=== PATIENT | female | born 1990 | race Caucasian/White ===

== ENCOUNTER 2023-07-28 11:46 | Outpatient (OUT) | payer OTHER, SELFPAY ==
[2023-07-28 12:36] LABS: Free T3 2.48 pg/mL (2.18-3.98); Thyroid Stimulating Hormone 0.144 uIU/mL (0.358-3.740)
== END 2023-07-28 11:47 | disposition home or self-care (01) ==
LOC: LAB 11:49
PROVIDERS: PCP Nurse Practitioner Family; Visit Provider Nurse Practitioner Family
DX: E03.9 Hypothyroidism, unspecified (principal)
CPT/HCPCS: 36415; 84436; 84443; 84481

== ENCOUNTER 2024-06-08 15:24 | Outpatient (OUT) | payer OTHER, SELFPAY ==
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
[2024-06-08 17:01] LABS: Free T3 1.13 pg/mL (2.18-3.98); Thyroid Stimulating Hormone 229.212 uIU/mL (0.358-3.740)
== END 2024-06-08 15:25 | disposition home or self-care (01) ==
LOC: LAB 15:25
PROVIDERS: PCP Nurse Practitioner Family; Visit Provider Nurse Practitioner Family
DX: E03.9 Hypothyroidism, unspecified (principal)
CPT/HCPCS: 36415; 84436; 84443; 84481

== ENCOUNTER 2024-06-10 14:30 | Outpatient (OUT) | payer OTHER, SELFPAY ==
--- NOTE | 2024-06-10 14:42 | XR_ITS ---
[facility] [place] [id number] Patient Name: VERA DIAS MRN: [id number] date: 1990 Sex: F Assigned Patient Location: [facility] Current Patient Location: Accession/Order Number: [id number] Exam Date: 06/10/2024 14:35 Report Date: 06/11/2024 07:37 At the request of: FABIOLA ABRAMS Procedure: XR knee LT 3V PROCEDURE: XR knee LT 3V COMPARISON: None. HISTORY: Left knee Pain FINDINGS: BONES:No fracture, acute abnormality, or significant arthropathy. SOFT TISSUES:Negative. No visible soft tissue swelling. EFFUSION:Moderate joint effusion OTHER: Negative. XR/XR knee LT 3V IMPRESSION: Moderate joint effusion Electronically authenticated by: ERMA MIN Date: 06/11/2024 07:37
== END 2024-06-10 14:31 | disposition home or self-care (01) ==
LOC: RAD 14:30
PROVIDERS: PCP Nurse Practitioner Family; Visit Provider Nurse Practitioner Family
DX: M25.562 Pain in left knee (principal); M25.462 Effusion, left knee
CPT/HCPCS: 73562

== ENCOUNTER 2024-06-28 12:43 | Outpatient (OUT) | payer OTHER, SELFPAY ==
--- NOTE | 2024-06-28 12:46 | MR_ITS ---
The [address] [address] Patient Name: VERA DAIS MRN: [id number] date: 1990 Sex: F Assigned Patient Location: MRI Current Patient Location: MRI Accession/Order Number: [id number] Exam Date: 06/28/2024 12:55 Report Date: 06/28/2024 15:24 At the request of: OTILIA RODRÍGUEZ Procedure: MR knee LT wo con EXAMINATION: MR knee LT wo con HISTORY: Effusion Left Knee, Acute Pain Of Left Knee COMPARISON: No relevant comparison available. TECHNIQUE: A complete multi-planar MRI was performed. FINDINGS: MEDIAL COMPARTMENT MEDIAL MENISCUS: Increased signal posterior aspect of the medial meniscus with possible tear extending to the inferior articular surface, sagittal image 21 CARTILAGE: No visible defect. BONES: No marrow pathology, fracture, or significant arthropathy. MCL AND MEDIAL CAPSULE: Normal medial collateral ligament and medial capsule. LATERAL COMPARTMENT LATERAL MENISCUS: No visible tear or significant degeneration. CARTILAGE: No visible defect. BONES: Signal abnormality consistent with bone edema measuring 3.6 x 2.9 cm on coronal image 14 within the lateral tibia and also within the fibular head LCL/POSTEROLAT COMPLEX: Normal lateral collateral ligament, fascicles, lateral capsule and ligaments. ANTERIOR COMPARTMENT PATELLA: No marrow pathology, fracture, or significant arthropathy. CARTILAGE: No visible defect. TENDONS: Normal. EFFUSION: Small joint effusion. ACL: Complete tear of the mid to upper third of the ligament. PCL: Normal appearing ligament. MENISCOFEMORAL: Normal meniscofemoral ligaments. OTHER: Negative. MR/MR knee LT wo con IMPRESSION: Complete tear of the ACL Bone contusions of the lateral tibia and fibular head. Electronically authenticated by: ERMA MIN Date: 06/28/2024 15:24
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
== END 2024-06-28 12:44 | disposition home or self-care (01) ==
PROVIDERS: PCP Nurse Practitioner Family; Visit Provider Physician Assistant
DX: M25.462 Effusion, left knee (principal); M25.562 Pain in left knee; S83.512A Sprain of anterior cruciate ligament of left knee, initial encounter
CPT/HCPCS: 73721

== ENCOUNTER 2024-08-12 09:21 | Outpatient (OUT) | payer OTHER, SELFPAY ==
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
[2024-08-12 11:21] LABS: Free T3 2.26 pg/mL (2.18-3.98); Thyroid Stimulating Hormone 10.687 uIU/mL (0.358-3.740)
== END 2024-08-12 09:22 | disposition home or self-care (01) ==
LOC: LAB 09:24
PROVIDERS: PCP Nurse Practitioner Family; Visit Provider Nurse Practitioner Family
DX: E03.9 Hypothyroidism, unspecified (principal)
CPT/HCPCS: 36415; 84436; 84443; 84481

== ENCOUNTER 2024-10-06 09:25 | Outpatient (OUT) | payer OTHER, SELFPAY ==
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
--- OUTSIDE RECORDS SUMMARY | 2024-07-28 04:22 | XMS_ITS ---
Author Organization [facility] Address [address] [place] [address] Care Team Providers Care Wood Tank Erector Name Role Phone Neena Oh Primary Care Provider REASON FOR VISIT repeat labs due Encounters Encounter Location Date Provider Diagnosis [address] [address] 07/28/2024 Neena Oh Plan Of Treatment No Information Progress Notes * Alessandra DIASOB:1990 (34 yo F)Acc No.[id number]:07/28/2024 Patient: Mark SANDOVALhael :1990 A ge:34 Y S ex:Female Address:[place] [address] * true * Date: Generated for Printi ng/Faxing/eTransmitting on: 0 10/06/2024 09:39 AM EDT
--- OUTSIDE RECORDS SUMMARY | 2024-08-13 10:52 | XMS_ITS ---
Author Organization [facility] [place] Address [address] [place] [address] Care Team Providers Care Production Material Coordinator Name Role Phone Neena Oh Primary Care Provider [phone] REASON FOR VISIT lab results- Medications Medication SIG (Take, Route, Frequency, Duration) Notes Start Date End Date Status Levothyroxine Sodium 137 MCG take 1 tabl et Orally Once a day for 30 days Active Encounters Encounter Location Date Provider Diagnosis [address] [address] 08/13/2024 Neena Oh Hypothyroid E03.9 Assessments Encounter Date Diagnosis (ICD Code) Assessment Notes Treatment Notes Treatment Clinical Notes Section Notes 08/13/2024 Hypothyroid (ICD-10 - E03.9) Plan Of Treatment Medication Medication Name Sig Start Date Stop Date Notes Levothyroxine Sodium 137 MCG take 1 tabl et Orally Once a day for 30 days Pending Test Test Name Order Date THYROID PANEL (T4/TSH/FREE T3) Progress Notes * Alessandra DIASOB:1990 (34 yo F)Acc No.[id number]:08/13/2024 Patient: Mark SANDOVALhael :1990 A ge:34 Y S ex:Female Address:[place] [address] * Refills Refill Levothyroxine Sodium Capsule, 137 MCG, Orally, 30, take 1 tablet, Once a day, 30 days, Refills=1 Subjective: * Chief Complaints: * L ab results- * Medical History: * Surgical History: * Hospitalization/Major Diagno stic Procedure: * Medications: Objective: * Vitals: * Physical Examination: Assessment: * Assessment: 1. H ypothyroid - E03.9 (Primary) Plan: * Treatment: 2. O thers Refill Levothyroxine Sodium Capsule, 137 MCG, take 1 tablet, Orally, Once a day, 30 days, 30, Refills 1. * Procedure Codes: * true * Date: Generated for Randal galdamez/Kanu/eTbeckysmitting on: 0 10/06/2024 09:33 AM EDT
--- OUTSIDE RECORDS SUMMARY | 2024-08-16 13:40 | XMS_ITS ---
Author Organization [facility] Address [address] [place] [address] Care Team Providers Care Test Director Name Role Phone Emir Oneil Unavailable [phone] Neena Oh Unavailable Unavailable REASON FOR VISIT Call back Encounters Encounter Location Date Provider Diagnosis [facility] [address] [place] [address] 08/16/2024 Emir Oneil Plan Of Treatment Next Appt Details Provider Name:Emir Liu and, 10/18/2024 07:50:00 AM, [address] [place] [address], [place], [address], Progress Notes * KAM DIASOB:1990 (34 yo F)Acc No.[id number]:08/16/2024 Patient: LIAN SANDOVALHAEL :1990 A ge:34 Y S ex:Female Address:[facility] [place], [address] * true * Date: Generated for Printi ng/Faxing/eTransmitting on: 0 10/06/2024 09:37 AM EDT
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
--- OUTSIDE RECORDS SUMMARY | 2024-10-01 05:56 | XMS_ITS ---
Author Organization [facility] [place] Address [address] [place] [address] Care Team Providers Care Ski Molder Name Role Phone Neena Oh Primary Care Provider [phone] REASON FOR VISIT repeat thyroid labs Encounters Encounter Location Date Provider Diagnosis [address] [address] 10/01/2024 Neena Oh Plan Of Treatment No Information Progress Notes * Alessandra DIASOB:1990 (34 yo F)Acc No.[id number]:10/01/2024 Patient: Mark SANDOVALhael :1990 A ge:34 Y S ex:Female Address:[place] [address] * true * Date: Generated for Printi ng/Faxing/eTransmitting on: 0 10/06/2024 09:40 AM EDT
--- OUTSIDE RECORDS SUMMARY | 2024-10-06 09:32 | XMS_ITS | CCD ---
Author Organization [facility] Care Team Providers Care Industrial Psychology Professor Name Role Phone Katelin Matos PA-C Attending Unavaila NEENA Cabrales Admitting Unavailable NEENA ABRAMS Attending Unavailable JOSE ALBERTO, NEENA Consulting Unavailable JOSE ALBERTO, NEENA Primary Care Unavailable KARASIK ., DR PHELAN Attending Unavailabl e KARASIK ., DR PHELAN Consulting Unavailabl e KARASIK ., DR PHELAN Admitting Unavailabl e JOSE ALBERTO, NEENA Primary Care Unavailable JOSE ALBERTO, NEENA Admitting Unavailable JOSE ALBERTO, NEENA Attending Unavailable JOSE ALBERTO, NEENA Consulting Unavailable JOSE ALBERTO, NEENA Primary Care Unavailable Unavailable Primary Care Provider UnavailMICHEAL Campbell Attending Unavailable JOSE ALBERTO, NEENA S Primary Care Unavailable DEYANIRA AGGARWAL Attending Unavailable DOMINICK SANCHEZ Referring Unavailable JOSE ALBERTO, NEENA S Primary Care Unavailable DOMINICK SANCHEZ Referring Unavailable JOSE ALBERTO, NEENA S Primary Care Unavailable DEYANIRA AGGARWAL Attending Unavailable DEYANIRA AGGARWAL Referring Unavailable JOSE ALBERTO, NEENA S Primary Care Unavailable DEYANIRA AGGARWAL Attending Unavailable DEYANIRA AGGARWAL Referring Unavailable JOSE ALBERTO, NENEA S Primary Care Unavailable Medications Current Medications Medication Drug Class(es) Dates Sig (Normalized) Sig (Original) etonogestrel 68 mg drug implant (1 source) Progestin Start: 09-21-2024 End: 09-21-2027 etonogestrel-eluting 68 mg contraceptive implant 1 each Problems Active Problems Problem Classification Problem Date Documented Da te Episodic/Chronic Contraceptive and procreative management (1 source) Patient encounter status; Translations: [Encounter for surveillance of implantable subdermal contraceptive] 09-21-2024 Episodic Joint disorders and dislocations; trauma-related (1 source) Other tear of medial meniscus, current injury, left knee, initial encounter; Translations: [Other tear of medial meniscus, current injury, left knee, initial encounter] Onset: 09-16-2024 Episodic Other injuries and conditions due to external causes (1 source) Other specified injuries of unspecified lower leg, initial encounter; Translations: [Other specified injuries of unspecified lower leg, initial encounter] Onset: 09-16-2024 Episodic Sprains and strains (2 sources) Sprain of anterior cruciate ligament of left knee, initial encounter; Translations: [Sprain [...] SCREENING HUMAN PAPILLOMAVIRUS] Onset: 11-13-2021 Episodic Other connective tissue disease (1 source) Myalgia, other site; Translations: [Myalgia, other site] Onset: 09-30-2023 Episodic Other connective tissue disease (1 source) Pain in lower limb Onset: 09-30-2023 Episodic Other female genital disorders (1 source) Other specified noninflammatory disorders of vagina; Translations: [OTH SPEC NONINFLAMMATORY D/O VAGINA] Onset: 11-13-2021 Episodic Other non-traumatic joint disorders (1 source) Knee pain Onset: 09-30-2023 Episodic Other screening for suspected conditions (not mental disorders or infectious disease) (4 sources) Encounter for screening for malignant neoplasm of cervix; Translations: [ENC SCREENING MALIG NEOPLASM CERV] Onset: 11-09-2021 Episodic Results Test Name Value Interpretation Reference Range Facility HCG ( test) Ql (U)o n 09-21-2024 Interpretation and review of laboratory results Normal [facility] Preg Test, Ur Negative Negative [facility] Insertion/Removal of Contrac eptive Capsuleon 09-21-2024 Melissa Castillo LPN 09/21/2024 2:29 PM Insertion/Removal of Contraceptive Capsule Date/Time: 09/21/2024 2:14 PM Performed by: Micheal Morrison DO Authorized by: Micheal Morrison DO Consent: Consent obtained: Written Consent given by: Patient Patient questions answered: yes Patient agrees, verbalizes understanding, and wants to proceed: yes Educational handouts given: no Instructions and paperwork completed: yes Indication: Indication: Insertion of non-biodegradable drug delivery implant Pre-procedure: Local anesthetic: Lidocaine without epinephrine The site was cleaned and prepped in a sterile fashion: yes Procedure: Procedure: Insertion Small stab incision was made in arm: no Left/right: Left Preloaded contraceptive capsule trocar was placed subdermally: yes Contraceptive capsule was inserted and trocar removed: yes Visualization of notch in stylet and palpation of device: yes Palpation confirms placement by provider and patient: yes Site was closed with steri-strips and pressure bandage applied: no Comments: Nexplanon Removal/Insertion: Patient presents today for removal/reinsertion of Nexplanon. Written consent for procedure was obtained and patient was placed in supine position with left arm flexed at elbow. Skin was cleansed with alcohol/Betadine and 3cc of Lidocaine was injected underneath palpated Nexplanon at distal end. After allowing for sufficient time for numbing agent to take effect, the skin overlying the end of Nexplanon was incised with an 11inch blade scalpel. A 7.5in hemostat was inserted in the incision site to grab device and Nexplanon was released from tissue. Nexplanon implant was removed in its entirety and visualized by myself and patient. The Nexplanon device was removed from its sterile packaging and found to be in good working order. Nexplanon implant was visualized in the sheath. The skin was held taut while the Nexplanon needle device was gently inserted underneath. After Nexplanon was deployed, the insertion device was discarded in the sharps container. The Nexplanon was palpated by both provider and patient. The insertion site was covered with sterile gauze. Good hemostasis was noted. Post-procedure instructions were given. Patient was advised to call office with any questions or concerns. Follow Up: Patient is to return to the office as needed for any routine appointments or concerns regarding procedure. Critical access hospitalHeydi Castillo LPN 09/21/2024 2:29 PM Insertion/Removal of Contraceptive Capsule Date/Time: 09/21/2024 2:14 PM Performed by: Micheal Morrison DO Authorized by: Micheal Morrison DO Consent: Consent obtained: Written Consent given by: Patient Patient questions answered: yes Patient agrees, verbalizes understanding, and wants to proceed: yes Educational handouts given: yes Instructions and paperwork completed: yes Indication: Indication: Presence of non-biodegradable drug delivery implant Pre-procedure: Local anesthetic: Lidocaine without epinephrine The site was cleaned and prepped in a sterile fashion: yes Procedure: Procedure: Removal Small stab incision was made in arm: yes Left/right: Left Preloaded contraceptive capsule trocar was placed subdermally: no Visualization of implant was obtained: yes Contraceptive capsule was inserted and trocar removed: no Visualization of notch in stylet and palpation of device: no Palpation confirms placement by provider and patient: no Site was closed with steri-strips and pressure bandage applied: no [facility] Insertion/Removal of Contrac eptive CapsuleOrdered By: Melissa Castillo on 09-21-2024 [facility] XR FEMUR RT 2+ VIEWSon 09-29 XR FEMUR RT 2+ VIEWS XR FEMUR RT 2+ VIEWS XR FEMUR RT 2+ VIEWS HISTORY: Injury, thigh pain. COMPARISON: None. IMPRESSION: 1. No acute fracture or dislocation. Finalized by Lyle Powell MD on 09/30/2023 2:26 PM Normal [facility] XR HAND LT MIN 3 VWSon [...] on 09/30/2023 2:23 PM Normal [facility] XR HIP RT 2-3 VIEWS W [...] on 09/30/2023 2:23 PM Normal [facility] XR KNEE LT 3 VWSon 4 [...] on 09/30/2023 2:22 PM Normal [facility] FREE THYROXINE INDEX T7on FTI 3.92 Normal 1.30-4.50 [facility] Comment on above: Performed By: #### T 7, TSH #### [facility] [address] [address] [address] Leonel Gandhi T3U 36.0 % Normal 30.0-39.0 [facility] Comment on above: Performed By: #### T 7, TSH #### [facility] [address] [address] [address] Leonel Gandhi T4 [Mass/Vol] 10.90 ug/dL Normal 4.80-13.[address] [facility] Comment on above: Performed By: #### T 7, TSH #### [facility] [address] [address] [address] Leonel Gandhi TSHon 07-12-2022 TSH 0.033 uIU/mL Critically low 0.358-3.740 [facility] Comment on above: Performed By: #### T 7, TSH #### [facility] [address] [address] [address] Leonel Gandhi FREE T3on 05-21-2022 FREE T3 1.58 pg/mlL Critically low 2.18-3.98 [facility] Comment on above: Performed By: #### T 4, FT3, TSH #### [facility] [address] [address] [address] Leonel Gandhi T4on 05-21-2022 T4 [Mass/Vol] 4.60 ug/dL Critically low 4.80-13.90 [facility] Comment on above: Performed By: #### T 4, FT3, TSH #### [facility] [id number] Leonel Gandhi TSHon 05-21-2022 TSH 11.706 uIU/mL Critically high 0.358-3.740 [facility] Comment on above: Performed By: #### T 4, FT3, TSH #### [facility] [address] [place] [address] Dr. Leonel Gandhi PAP ACOG PANEL 2: 30 to 65on 11-14-2021 . . Normal [facility] Comment on above: Result Comment: Perf ormed at: WB Performed By: #### [id number] #### [facility] [address] [place] [address] Dr. Leonel Gandhi Age Gdln ACOG Testing 30-65 Normal [facility] Comment on above: Performed By: #### [id number] #### [facility] [address] [place] [address] Dr. Leonel Gandhi DIAGNOSIS: Comment Normal [facility] Comment on above: Result Comment: NEGA TIVE FOR INTRAEPITHELIAL LESION OR MALIGNANCY. TRICHOMONAS VAGINALIS IS PRESENT. Performed at: WB Performed By: #### [id number] #### [facility] [address] [place] [address] Dr. Leonel Gandhi HPV Aptima Negative Normal Negative [facility] Comment on above: Result Comment: This nucleic acid amplification test detects fourteen high-risk HPV types (16,18,31,33,35,39,45,51,52,56,58,59,66,68) without differentiation. Performed at: =G Performed By: #### [id number] #### [facility] [address] [place] [address] Dr. Leonel Gandhi Methodology: Comment Normal [facility] Comment on above: Result Comment: This liquid based ThinPrep(R) pap test was screened with the use of an image guided system. Performed at: WB Performed By: #### [id number] #### [facility] [address] [place] [address] Dr. Leonel Gandhi Note: Comment Normal [facility] Comment on above: Result Comment: The Pap smear is a screening test designed to aid in the detection of premalignant and malignant conditions of the uterine cervix. It is not a diagnostic procedure and should not be used as the sole means of detecting cervical cancer. Both false-positive and false-negative reports do occur. . Performed at: WB Performed By: #### [id number] #### [facility] [address] [place] [address] Dr. Leonel Gandhi Performed by: Comment Normal [facility] Comment on above: Result Comment: Landon Chua, Implementation Director (ASCP) Performed at: WB Performed By: #### [id number] #### [facility] [address] [place] [address] Dr. Leonel Gandhi Specimen adequacy: Comment Normal [facility] Comment on above: Result Comment: Sati sfactory for evaluation. Endocervical and/or squamous metaplastic cells (endocervical component) are present. Performed at: WB Performed By: #### [id number] #### [facility] [address] [place] [address] Dr. Leonel Gandhi CHLAMYDIA/GONOCOCCUS LIZZ (SW AB/URINE/PAPon 11-13-2021 Chlamydia trachomatis, LIZZ Negative Normal Negative [facility] Comment on above: Performed By: #### C T/NGNA #### [facility] [address] [place] [address] Dr. Leonel Gandhi Neisseria gonorrhoeae, LIZZ Negative Normal Negative [facility] Comment on above: Performed By: #### C T/NGNA #### [facility] [address] [place] [address] Dr. Leonel Gandhi VAGINITIS/VAGINOSIS DNA PROB Leon 11-11-2021 Candy species Negative Normal Negative [facility] Comment on above: Performed By: #### V AGINT #### [facility] [address] [address] [address] Leonel Gandhi Gardnerella vaginalis Negative Normal Negative [facility] Comment on above: Performed By: #### V AGINT #### [facility] [address] [address] [address] Leonel Gandhi Trichomonas vaginalis Positive Abnormal Negative [facility] Comment on above: Performed By: #### V AGINT #### [facility] [address] [address] [address] Leonel Gandhi Valproic Acid (in house)on 0 06-18-2021 Valproic Acid (in house) 92.3 ug/mL Normal 50.0-100.0 [facility] Comment on above: Result Comment: Last dose: - PERFORMED BY: [place] [address] PATHOLOGIST TRAVEL REGISTERED NURSE ONCOLOGY FADI PRUITT M.D. Performed By: #### V ALP #### [facility] [address] [place] [address] Free T4 (Free Thyroxine)on 0 06-15-2021 Free T4 [Mass/Vol] 0.78 ng/dL Normal 0.61-1.12 [facility] Comment on above: Performed By: #### V [id number], T4F, LIPID, TSH3 wRFLX #### [facility] [address] [place] [address] Lipid Panelon 06-15-2021 Cholesterol [Mass/Vol] 156 mg/dL Normal 140-200 [facility] Comment on above: Result Comment: Chol less than 200 mg/dl low risk Chol 201-239 mg/dl borderline risk Chol 240 mg/dl and greater high risk Performed By: #### V [id number], T4F, LIPID, TSH3 wRFLX #### [facility] [address] [place] [address] Cholesterol in HDL [Mass/Vol] 51 mg/dL Normal 35-85 [facility] Comment on above: Result Comment: HDL CHOL ATP-III CLASSIFICATION Cardiovascular Risk HDL > or equal to 60 mg/dL LOW HDL < 40 mg/dL HIGH Performed By: #### V [id number], T4F, LIPID, TSH3 wRFLX #### [facility] [address] Cholesterol.total/C holesterol in HDL [Mass ratio] 3.1 {ratio} Normal <5.0 [facility] Comment on above: Performed By: #### V [id number], T4F, LIPID, TSH3 wRFLX #### [facility] [address] LDL Cholesterol,Calcula jazmin 92 mg/dL Normal 0-100 [facility] Comment on above: Result Comment: LDL ATP III CLASSIFICATION LDL less than 100 mg/dL Optimal LDL 100-129 mg/dL Near or above optimal LDL 130-159 mg/dL Borderline high LDL 160-189 mg/dL High LDL greater than 189 mg/dL Very high Performed By: #### V [id number], T4F, LIPID, TSH3 wRFLX #### [address] Triglyceride w/Reflex 63 mg/dL Normal 35-149 [facility] Comment on above: Result Comment: TRIG ATP III CLASSIFICATION TRIG less than 150 mg/dL Normal TRIG 150-199 mg/dL Borderline high TRIG 200-500 mg/dL High TRIG greater than 500 mg/dL Very high Standard traceable to the Center for Disease Conrtrol and Prevention (CDC) test method. Performed By: #### V [id number], T4F, LIPID, TSH3 wRFLX #### [facility] [address] [place] [address] VLDL CHOLESTEROL 12 mg/dL Normal [facility] Comment on above: Performed By: #### V [id number], T4F, LIPID, TSH3 wRFLX #### [address] Thyroid Stim Hormone w/Rflxo n 06-15-2021 Thyroid Stim Hormone w/Rflx 8.24 u[iU]/mL High 0.45-5.33 [facility] Comment on above: Performed By: #### V [id number], T4F, LIPID, TSH3 wRFLX #### [address] [place] [address] [facility] Vitamin D 25 Hydroxy Totalon 06-15-2021 Vitamin D 25 Hydroxy Total 26.6 ng/mL Low 30-100 [facility] Comment on above: Result Comment: GREGORY MIN D STATUS 25(OH)VITAMIN D RANGE (ng/mL) Deficient <20 Insufficient 20 to <30 Sufficient 30 to 100 Reference: Kelton MF,Jacinto NC, Raymond PENNINGTON, et al. Evaluation,treatment, and prevention of vitamin D deficiency; an Endocrine Society clinical practice guideline. JCEM. 2010; 96(7):1911-30. PERFORMED BY: [facility] [address] [facility]. [place] [id number] PATHOLOGIST TRAVEL REGISTERED NURSE ONCOLOGY FADI PRUITT M.D. Performed By: #### V [id number], T4F, LIPID, TSH3 wRFLX #### [facility] [address] [id number] [facility] Outside Colonoscopyon 2020 Outside Colonoscopy [id number] .[id number]:[address] [facility] Provider Letter FTon 06-28 Provider Letter [facility] NEENA ABRAMS, [address] [place] [address] Re: VERA FUNK Date of : 1990 [...] persist. Sincerely, Dav Estrada MD General Surgery [facility] Consent for Procedure/Surger yon 06-22-2020 Consent for Procedure/Surgery [id number] .[id number]:[address] [facility] Facesheeton 06-22-2020 Facesheet [id number] .00CD:[address] [facility] Ambulatory Clinical Summaryo n 06-21-2020 Ambulatory Clinical Summary {[id number]}CD:[id number] Normal [facility] Ambulatory Clinical Summary {[id number]}CD:[id number] Normal [facility] General Surgery Office/Clini c Noteon 06-21-2020 General Surgery Office/Clinic Note HPI Staff 30 year old female on consultation from Nenea Abrams NP for enlarged lymph nodes of [...] sipuleucel-T - Not Given Patient Refuses Normal [facility] Comment on above: Result Comment: Elec tronically Signed By: KRYSTAL MCKENZIE, Dav Gamino\Date and Time Signed: 06/21/20 17:50 EST Physician Referralon 05-18-2 020 Physician Referral [id number] .[id number]:127 Normal [facility] Vital Signs Date Time Vital Sign Value Performing Clinician Faci lity 09-21-2024 13:54-0400 Body weight 66.95 kg Micheal Prince DO Work Phone: [facility] 09-21-2024 13:54-0400 Diastolic blood pressure 72 mm[Hg] Micheal Prince DO Work Phone: [facility] 09-21-2024 13:54-0400 Systolic blood pressure 110 mm[Hg] Micheal Prince DO Work Phone: [facility] Encounters Encounter Date Encounter Type Care Provider Facility Start: 09-21-2024 End: 09-21-2024 Patient encounter procedure Micheal Prince DO Work Phone: [facility] Comment on above: Encounter for remova l and reinsertion of Nexplanon Start: 09-21-2024 End: 09-21-2024 ambulatory MICHEAL PRINCE Not Available Start: 09-16-[address] [facility] Start: 08-30-[address] [facility] Start: 09-30-2023 End: 10-01-2023 Emergency department patient visit DEYANIRA AGGARWAL [facility] Start: 07-12-2022 End: 07-13-2022 ambulatory NEENA ABRAMS Facility:[facility]1 Start: 05-21-2022 End: 05-22-2022 ambulatory NEENA ABRAMS Facility:[facility] Start: 02-21-2022 ambulatory Katelin Matos PA-C [facility] Start: 11-09-2021 End: 11-09-[address] ZHANE GROSS . 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 [address] [address] [facility] Start: 2018 Screening for malign ant neoplasm of cervix [facility] Start: 2009 Screening for malign ant neoplasm of cervix Pap Smear [facility] Immunizations Immunization Date Immunization Notes Care Provider Fa cility 02-17-2006 influenza virus vacc ine, unspecified formulation Micheal Prince DO Work Phone: [facility] Healthcare Payers Date Payer Category Payer Unknown [id number] 2022 Medicaid (Managed Care) [facility] [id number] 1988 Unknown [id number] [id number]. 593 1988 Unknown [id number] 2.16.840.1.965445.3.579.2. 593 1988 Unknown [id number] 2.16.840.1.874205.3.579.2. 593 1988 Unknown [id number] 2.16.840.1.370039.3.579.2. 1259 1988 Unknown [id number] 2.16.840.1.385310.3.579.2. 1286 1988 Unknown [id number] 2.16.840.1.954867.3.579.2. 1286 1988 Unknown [id number] 2.16.840.1.265658.3.579.2. 1286 1988 Unknown [id number] 2.16.840.1.188321.3.579.2. 1286 1988 Unknown [id number] 2.16.840.1.230493.3.579.2. 1286 1988 Unknown [id number] 2.16.840.1.823996.3.579.2. 1286 1988 Unknown [id number] 2.16.840.1.954276.3.579.2. 1286 1959 Unknown [id number] Social History Date Type Detail Facility Tobacco smoking stat [facility] Tobacco smoking consumption unknown [facility] Start: 1990 Sex assigned at Not on file [facility] Gender identity Not on file [facility] History of Present illness Narrative 09-21-2024 DO Jasmin Osman 09/21/2024 1:30 PM EDT Note Date & Type Note Facility 09-21-2024 History of Presen t illness Narrative Associated Order(s): Insertion/Removal of Contraceptive Capsule; Insertion/Removal of Contraceptive Capsule Post-Procedure Diagnose(s): Encounter for removal and reinsertion of Nexplanon Reason for Appointment: Patient ID: Vera Funk is a 34 y.o. female who presents for nexplanon removal/insertion Patient presents today for a Nexplanon Removal and Nexplanon Insertion appointment. MEDICATIONS No current outpatient medications ALLERGIES No Known Allergies SURGICAL HISTORY History reviewed. No pertinent surgical history. REVIEW OF SYSTEMS Review of Systems: Review of Systems Constitutional: Negative. HENT: Negative. Eyes: Negative. Respiratory: Negative. Cardiovascular: Negative. Gastrointestinal: Negative. Genitourinary: Negative. Musculoskeletal: Negative. Skin: Negative. Neurological: Negative. All other systems reviewed and are negative. Hematological: Negative. Endocrine: Negative. Allergic/Immunologic: Negative. OBJECTIVE Objective: Physical Exam Constitutional: Appearance: Normal appearance. She is well-developed. Cardiovascular: Rate and Rhythm: Normal rate and regular rhythm. Pulmonary: Effort: Pulmonary effort is normal. Breath sounds: Normal breath sounds. Abdominal: General: Bowel sounds are normal. There is no distension. Palpations: Abdomen is soft. Tenderness: There is no abdominal tenderness. There is no guarding or rebound. Musculoskeletal: General: No swelling. Normal range of motion. Right lower leg: No edema. Left lower leg: No edema. Neurological: Mental Status: She is alert and oriented to person, place, and time. Skin: General: Skin is warm and dry. Psychiatric: Mood and Affect: Mood normal. Behavior: Behavior normal. Vitals and nursing note reviewed. Exam conducted with a accuracy expert present. Vitals: There is no height or weight on file to calculate BMI. BP: 110/72 No LMP recorded. ASSESSMENT & PLAN Assessment/Plan Encounter Diagnosis: ICD-10-CM 1. Encounter for removal and reinsertion of Nexplanon Z30.46 etonogestrel-eluting 68 mg contraceptive implant 1 each POCT , urine manually resulted Insertion/Removal of Contraceptive Capsule Date/Time: 09/21/2024 2:14 PM Performed by: Micheal Morrison DO Authorized by: Micheal Morrison DO Consent: Consent obtained: Written Consent given by: Patient Patient questions answered: yes Patient agrees, verbalizes understanding, and wants to proceed: yes Educational handouts given: yes Instructions and paperwork completed: yes Indication: Indication: Presence of non-biodegradable drug delivery implant Pre-procedure: Local anesthetic: Lidocaine without epinephrine The site was cleaned and prepped in a sterile fashion: yes Procedure: Procedure: Removal Small stab incision was made in arm: yes Left/right: Left Preloaded contraceptive capsule trocar was placed subdermally: no Visualization of implant was obtained: yes Contraceptive capsule was inserted and trocar removed: no Visualization of notch in stylet and palpation of device: no Palpation confirms placement by provider and patient: no Site was closed with steri-strips and pressure bandage applied: no Insertion/Removal of Contraceptive Capsule Date/Time: 09/21/2024 2:14 PM Performed by: Micheal Morrison DO Authorized by: Micheal Morrison DO Consent: Consent obtained: Written Consent given by: Patient Patient questions answered: yes Patient agrees, verbalizes understanding, and wants to proceed: yes Educational handouts given: no Instructions and paperwork completed: yes Indication: Indication: Insertion of non-biodegradable drug delivery implant Pre-procedure: Local anesthetic: Lidocaine without epinephrine The site was cleaned and prepped in a sterile fashion: yes Procedure: Procedure: Insertion Small stab incision was made in arm: no Left/right: Left Preloaded contraceptive capsule trocar was placed subdermally: yes Contraceptive capsule was inserted and trocar removed: yes Visualization of notch in stylet and palpation of device: yes Palpation confirms placement by provider and patient: yes Site was closed with steri-strips and pressure bandage applied: no Comments: Nexplanon Removal/Insertion: Patient presents today for removal/reinsertion of Nexplanon. Written consent for procedure was obtained and patient was placed in supine position with left arm flexed at elbow. Skin was cleansed with alcohol/Betadine and 3cc of Lidocaine was injected underneath palpated Nexplanon at distal end. After allowing for sufficient time for numbing agent to take effect, the skin overlying the end of Nexplanon was incised with an 11inch blade scalpel. A 7.5in hemostat was inserted in the incision site to grab device and Nexplanon was released from tissue. Nexplanon implant was removed in its entirety and visualized by myself and patient. The Nexplanon device was removed from its sterile packaging and found to be in good working order. Nexplanon implant was visualized in the sheath. The skin was held taut while the Nexplanon needle device was gently inserted underneath. After Nexplanon was deployed, the insertion device was discarded in the sharps container. The Nexplanon was palpated by both provider and patient. The insertion site was covered with sterile gauze. Good hemostasis was noted. Post-procedure instructions were given. Patient was advised to call office with any questions or concerns. Follow Up: Patient is to return to the office as needed for any routine appointments or concerns regarding procedure. Documented by Melissa Castillo LPN on behalf of: Micheal Morrison DO documented in this encounter [facility] Evaluation note Note Date & Type Note Facility Evaluation note Diagnosis Encounter for removal and reinsertion of Nexplanon documented in this encounter [facility] Summary Purpose Family History No Family History [...] and content) DATE CREATED AUTHOR 08/02/2020 [facility] DATE CREATED AUTHOR AUTHOR'S ORGANIZ ATION 07/10/2021 [facility] DATE CREATED AUTHOR AUTHOR'S ORGANIZ ATION 02/22/2022 Health [facility] DATE CREATED AUTHOR AUTHOR'S ORGANIZ ATION 07/19/2022 [facility] DATE CREATED AUTHOR AUTHOR'S ORGANIZ ATION 09/24/2024 [facility] DATE CREATED AUTHOR AUTHOR'S ORGANIZ ATION 09/24/2024 [facility] Reason for Visit (unrecogniz ed section and content) Reason Comments nexplanon removal/insertion FOR RECORDS PERTAINING TO PATIENTS WHO ARE [...] BE BASED ON THE PRIMARY CLINICAL RECORDS. [facility]. provides no warranty or guarantee of the accuracy or completeness of information in this document.
--- OUTSIDE RECORDS SUMMARY | 2024-10-06 09:34 | XMS_ITS | Clinical Summary ---
Author Organization [facility] Healthcare Address [address] [place] [address] Care Team Providers Care Business Performance Analyst Name Role Phone Unavailable Primary Care Provider Unavailabl e Allergies No known active allergies Medications Hospital, Clinic, or Other Facility Administered Medication Ordered Dose Route Frequency Start Date End Date Status etonogestrel-eluting 68 mg contraceptive implant 1 eachIndications:Encounter for removal and reinsertion of Nexplanon 1 each [place] Continuous 09/21/2024 09/21/2027 Active Encounters Date Type Department Care Team Description 09/21/2024 1:30 PM EDT Procedure Visit [facility] [address] [place] [address] Zia Morrison DO Encounter for removal and reinsertion of Nexplanon from Last 3 Months Social History Tobacco Use Types Packs/Day Years Used Date Smoking Tobacco: Never Assessed Comments Unknown Sex and Gender Information Value Date Recorded Sex Assigned at Not on file Legal Sex Female 7:38 PM EDT Gender Identity Not on file Sexual Orientation Not on file Last Filed Vital Signs Vital Sign Reading Time Taken Comments Blood Pressure 110/72 09/21/2024 1:54 PM EDT Pulse - - Temperature - - Respiratory Rate - - Oxygen Saturation - - Inhaled Oxygen Concentration - - Weight 67 kg (147 lb 9.6 oz) 09/21/2024 1:54 PM EDT Height - - Body Mass Index - - Plan of Treatment Upcoming Encounters Date Type Department Care Team ( Contact Info) Description 11/09/2024 10:00 AM EDT Office Visit [facility] [address] [place] [id number] Arielle Mccormack PA [address] [place], [place] [id number] Health Maintenance Due Date Last Done Comments Pap Smear 2009 Cervical Cancer Screening 2018 HPV/Cotest 2018 Influenza Vaccine (Season Ended) 2025 02/18/20 06 Procedures Procedure Name Priority Date/Time Associated Diagnosis Comments GARMENT LOOPER INSERTION/REMOVAL OF CONTRACEPTIVE CAPSULE Routine 09/21/2024 2:14 PM EDT Encounter for removal and reinsertion of Nexplanon GARMENT LOOPER INSERTION/REMOVAL OF CONTRACEPTIVE CAPSULE Routine 09/21/2024 2:14 PM EDT Encounter for removal and reinsertion of Nexplanon POCT , URINE Routine 09/21/2024 2:01 PM EDT Encounter for removal and reinsertion of Nexplanon from Last 3 Months Results * Insertion/Removal of Contraceptive Capsule (09/21/2024 2:14 PM EDT) Melissa Medina LPN - 09/21/2024 2:14 PM EDT Melissa Castillo LPN 09/21/2024 2:29 PM Insertion/Removal of Contraceptive Capsule Date/Time: 09/21/2024 2:14 PM Performed by: Zia Morrison DO Authorized by: Zia Morrison DO Consent: Consent obtained: Written Consent [...] any routine appointments or concerns regarding procedure. Zia Morrison DO IN CLINIC/BEDSIDE ORDERABLES Fin al Result * Insertion/Removal of Contraceptive Capsule (09/21/2024 2:14 PM EDT) Melissa Medina LPN - 09/21/2024 2:14 PM EDT Melissa Castillo LPN 09/21/2024 2:29 PM Insertion/Removal of Contraceptive Capsule Date/Time: 09/21/2024 2:14 PM Performed by: Zia Morrison DO Authorized by: Zia Morrison DO Consent: Consent obtained: Written Consent [...] with steri-strips and pressure bandage applied: no us Zia Prince DO IN CLINIC/BEDSIDE ORDERABLES Fin al Result * POCT , urine manually resulted (09/21/2024 2:01 PM EDT) Preg Test, Ur Negative Negative Urine 09/21/2024 2:01 PM EDT us Zia Prince DO POINT OF CARE TEST ENTER/EDIT OR DERABLES Final Result from Last 3 Months Insurance [employer]
--- OUTSIDE RECORDS SUMMARY | 2024-10-06 09:35 | XMS_ITS | Patient Health Record ---
Author Organization [facility] Address [address] [place] [address] Care Team Providers Care Quality Assurance Monitor Body Name Role Phone Neena Oh Primary Care Provider Allergies No Known Allergies Results Component Value Reference Range Notes XR KNEE LT 3V Reviewed date:06/11/2024 09:52:58 AM Interpretation: Performing Lab: Notes/Report: Source Facility: [place] [address] XRay Report Signed Patient: VERA DIAS MR#: [id number] : 1990 Acct:[id number] Age/Sex: 34 / F ADM Date: 06/10/24 Loc: [facility] Attending Dr: NEENA [place] Ordering Physician: NEENA [place] Date of Service: 06/10/24 Procedure(s): XR knee LT 3V Accession Number(s): [id number] cc: NEENA [place] [address] Patient Name: VERA DIAS MRN: [id number] date: 1990 Sex: F Assigned Patient Location: RAD Current Patient Location: Accession/Order Number: [id number] Exam Date: 06/10/2024 14:35 Report Date: 06/11/2024 07:37 At the request of: NEENA OH Procedure: XR knee LT 3V PROCEDURE: XR knee LT 3V COMPARISON: None. HISTORY: Left knee Pain FINDINGS: BONES:No fracture, acute abnormality, or significant arthropathy. SOFT TISSUES:Negative. No visible soft tissue swelling. EFFUSION:Moderate joint effusion OTHER: Negative. XR/XR knee LT 3V IMPRESSION: Moderate joint effusion Electronically authenticated by: ERMA MIN Date: 06/11/2024 07:37 Dictated By: Erma Min M.D. Signed By: 06/11/2440 DD/ 6 TD/TT: Classification Clerk: [place] [address] XRay Report Signed Patient: BARRETT DIAS MR#: [id number] : 1990 Acct:[id number] Age/Sex: 34 / F ADM Date: 06/10/24 Loc: RAD Attending Dr: NEENA [place] Ordering Physician: NEENA [place] Date of Service: 06/10/24 Procedure(s): XR kne e LT 3V Accession Number(s): [id number] cc: NEENA [place] [address] Patient Name: VERA DIAS MRN: [id number] date: 1990 Sex: F Assigned Patient Location: [facility] Current Patient Location: Accession/Order Numb er: [id number] Exam Date: 06/10/2024 14:35 Report Date: 06/11/2024 07:37 At the request of: NEENA OH Procedure: XR knee LT 3V PROCEDURE: XR knee LT 3V COMPARISON: None. HISTORY: Left knee Pain FINDINGS: BONES:No fracture, a cute abnormality, or significant arthropathy. SOFT TISSUES:Negativ e. No visible soft tissue swelling. EFFUSION:Moderate hamzah int effusion OTHER: Negative. X R/XR knee LT 3V IMPRESSION: Moderate joint effusion Electronically authenticated by: ERMA MIN Date: 06/11/2024 07:37 Dictated By: Kamar Min M.D. Signed By: 06/11/24 0740 DD/ TD/TT: Classification Clerk: FREE T3 Reviewed date:06/09/2024 12:13:12 PM Interpretation: Performing Lab: Notes/Report: [facility] , Free T3 1.13 2.18-3.98 pg/mL Performing Lab: see note ML - [facility] LB T4 Reviewed date:06/09/2024 12:13:12 PM Interpretation: Performing Lab: Notes/Report: [facility] , T4 Thyroxine 2.10 4.80-13.90 ug/dL Performing Lab: see note ML - [facility] LB TSH Reviewed date:06/09/2024 12:13:12 PM Interpretation: Performing Lab: Notes/Report: [facility] , Thyroid Stimulating Hormone 229.212 0.358-3.740 uIU/mL Performing Lab: see note ML - [facility] LB MR knee LT wo con Reviewed date:06/30/2024 12:52:47 PM Interpretation: Performing Lab: Notes/Report: Source Facility: [place] [address] [place] [address] Magnetic Resonance Report Signed Patient: VERA DIAS MR#: [id number] : 1990 Acct:[id number] Age/Sex: 34 / F ADM Date: 06/28/24 Loc: MRI Attending Dr: Penelope MALDONADO Ordering Physician: Penelope Rodríguez Date of Service: 06/28/24 Procedure(s): MR knee LT wo con Accession Number(s): [id number] cc: NEENA [place] ; Penelope Rodríguez [place] [address] Patient Name: VERA DIAS MRN: [id number] date: 1990 Sex: F Assigned Patient Location: MRI Current Patient Location: MRI Accession/Order Number: [id number] Exam Date: 06/28/2024 12:55 Report Date: 06/28/2024 15:24 At the request of: PENELOPE RODRÍGUEZ Procedure: MR knee LT wo con EXAMINATION: MR knee LT wo con HISTORY: Effusion Left Knee, Acute Pain Of Left Knee COMPARISON: No relevant comparison available. TECHNIQUE: A complete multi-planar MRI was performed. FINDINGS: MEDIAL COMPARTMENT MEDIAL MENISCUS: Increased signal posterior aspect of the medial meniscus with possible tear extending to the inferior articular surface, sagittal image 21 CARTILAGE: No visible defect. BONES: No marrow pathology, fracture, or significant arthropathy. MCL AND MEDIAL CAPSULE: Normal medial collateral ligament and medial capsule. LATERAL COMPARTMENT LATERAL MENISCUS: No visible tear or significant degeneration. CARTILAGE: No visible defect. BONES: Signal abnormality consistent with bone edema measuring 3.6 x 2.9 cm on coronal image 14 within the lateral tibia and also within the fibular head LCL/POSTEROLAT COMPLEX: Normal lateral collateral ligament, fascicles, lateral capsule and ligaments. ANTERIOR COMPARTMENT PATELLA: No marrow pathology, fracture, or significant arthropathy. CARTILAGE: No visible defect. TENDONS: Normal. EFFUSION: Small joint effusion. ACL: Complete tear of the mid to upper third of the ligament. PCL: Normal appearing ligament. MENISCOFEMORAL: Normal meniscofemoral ligaments. OTHER: Negative. MR/MR knee LT wo con IMPRESSION: Complete tear of the ACL Bone contusions of the lateral tibia and fibular head. Electronically authenticated by: ERMA MIN Date: 06/28/2024 15:24 Dictated By: Erma Min M.D. Signed By: 06/28/24 1527 DD/ 1524 TD/TT: Classification Clerk: [place] [address] Magnetic Resonance Report Signed Patient: BARRETT DIAS MR#: [id number] : 1990 Acct:[id number] Age/Sex: 34 / F ADM Date: 06/28/24 Loc: MRI Attending Dr: Jay Tolentino Ordering Physician: Penelope Rodríguez Date of Service: 06/28/24 Procedure(s): kne e LT wo con Accession Number(s): [id number] cc: NEENA [place] ; Penelope Rodríguez [address] [address] Patient Name: VERA DIAS MRN: [id number] date: 1990 Sex: F Assigned Patient Location: MRI Current Patient Location: MRI Accession/Order Numb er: [id number] Exam Date: 06/28/2024 12:55 Report Date: 06/28/2024 15:24 At the request of: PENELOPE RODRÍGUEZ Procedure: MR knee L T wo con EXAMINATION: MR knee LT wo con HISTORY: Effusion Le ft Knee, Acute Pain Of Left Knee COMPARISON: No relev ant comparison available. TECHNIQUE: A complet e multi-planar MRI was performed. FINDINGS: MEDIAL COMPARTMENT MEDIAL MENISCUS: Increased signal posterior aspect of the medial meniscus with possible tear extend ing to the inferior articular surface, sagittal image 21 CARTILAGE: No visibl e defect. BONES: No marrow pathology, fracture, or significant arthropathy. MCL AND MEDIAL CAPSU LE: Normal medial collateral ligament and medial capsule. LATERAL COMPARTMENT LATERAL MENISCUS: No visible tear or significant degeneration. CARTILAGE: No visibl e defect. BONES: Signal abnormality consistent with bone edema measuring 3.6 x 2.9 cm on coronal image 14 wit hin the lateral tibia and also within the fibular head LCL/POSTEROLAT COMPL EX: Normal lateral collateral ligament, fascicles, lateral capsule and ligaments. ANTERIOR COMPARTMENT PATELLA: No marrow pathology, fracture, or significant arthropathy. CARTILAGE: No visibl e defect. TENDONS: Normal. EFFUSION: Small join t effusion. ACL: Complete tear o f the mid to upper third of the ligament. PCL: Normal appearin g ligament. MENISCOFEMORAL: Norm al meniscofemoral ligaments. OTHER: Negative. M R/MR knee LT wo con IMPRESSION: Complete tear of the ACL Bone contusions of t he lateral tibia and fibular head. Electronically authenticated by: ERMA MIN Date: 06/28/2024 15:24 Dictated By: Kamar Min M.D. Signed By: 06/28/24 1527 DD/ 1524 TD/TT: Classification Clerk: MARIA EUGENIA T3 Reviewed date:08/13/2024 02:54:01 PM Interpretation: Performing Lab: Notes/Report: [facility] Free T3 2.26 2.18-3.98 pg/mL Performing Lab: see note ML - [facility] LB T4 Reviewed date:08/13/2024 02:54:01 PM Interpretation: Performing Lab: Notes/Report: [facility] , T4 Thyroxine 9.40 4.80-13.90 ug/dL Performing Lab: see note ML - [facility] LB TSH Reviewed date:08/13/2024 02:53:53 PM Interpretation: Performing Lab: Notes/Report: [facility] , Thyroid Stimulating Hormone 10.687 0.358-3.740 uIU/mL Performing Lab: see note ML - [facility] LB Reason For Referral Diagnosis 1 Left knee pain (M25. 562) Referral Organization [facility] Referring Provider First Name Neena Referring Provider Last Name Adriano Referring Provider Speciality [facility]an Referred Provider Emir Oneil Referred Provider Specialty Orthopedic S urgery Referral Priority Routine Medications Medication SIG (Take, Route, Frequency, Duration) Notes Start Date End Date Status Vistaril 25 MG 1 capsule Orally BID as needed for 30 days 03/12/2023 Active QUEtiapine Fumarate 25 MG take 1 tablet by mouth at bedtime for 30 days Not-Takin g Levothyroxine Sodium 137 MCG take 1 tablet Orally Once a day for 30 days Active Social History Tobacco Use: Social History Observation Description Date Details (start date - stop date) Current Smoker 05/19/2005 - NA Tobacco Use/Smoking Question Answer Notes Patient is a current smoker When did you start smoking? 05/19/2005 How often do you smoke cigarettes? every day How many cigarettes a day do you smoke? 11-20 How soon after you wake up d o you smoke your first cigarette? within 5 minutes Are you interested in quitting? Thinking about q uitting Alcohol Screen (Audit-C) Question Answer Notes Did you have a drink containing alcohol in the p ast year? Yes Points 0 Interpretation Negative AUDIT-C (Standard) Question Answer Notes Did you have a drink containing alcohol in the p ast year? No Points 0 Interpretation Negative Problems Problem Type SNOMED Code ICD Code Onset Dates Problem Status W/U Status Risk Notes Problem 444521744 Bipolar disorder, current episode mixed, moderate (F31.62) Active confirmed Problem Gastroesophageal reflux disease (279396882) GERD (gastroesophag eal reflux disease) (K21.9) Active confirmed Problem Hypothyroid (50765836) Hypothyroid (E03.9) Active confirmed Problem Depression (403468420) Depression (F32.9) Active confirmed Problem History of calculus of kidney (622934139) History of kidney stones (Z87.442) Active confirmed Problem Overweight (595041469) Over weight (E66.3) Active confirmed Problem Night sweats (75362313) Night sweats (R61) Active confirmed Problem Suicidal ideation (9083803) Suicidal ideation (R45.851) Active confirmed Problem Prolonged QT interval (088131640) Prolonged QT interval (R94.31) Active confirmed Problem History of substance abuse (F19.11) Active confirmed Vital Signs Blood pressure diastolic 62 mm Hg 06/08/2024 Height 64 in 06/08/2024 Blood pressure systolic 122 mm Hg 06/08/2024 Weight 160.8 lbs 06/08/2024 BMI 27.6 kg/m2 06/08/2024 Encounters Encounter Location Date Provider Diagnosis [address] [address] 06/08/2024 Neena Oh Hypothyroid E03.9 an d Left knee pain M25.[address] [address] 01/05/2024 Neena Oh Bipolar disorder, current episode mixed, moderate F31.[address] [address] 06/09/2024 Neena Oh Hypothyroid E03.[address] [address] 06/11/2024 Neena Oh Left knee pain M25.[address] [address] 07/28/2024 Neena Oh [address] [address] 08/13/2024 Neena Oh Hypothyroid E03.[address] [address] 10/01/2024 Neena Oh Assessments Encounter Date Diagnosis (ICD Code) Assessment Notes Treatment Notes Treatment Clinical Notes Section Notes 06/08/2024 Hypothyroid (ICD-10 - E03.9) 06/08/2024 Left knee pain (ICD-10 - M25.562) 01/05/2024 Bipolar disorder, current episode mixed, moderate (ICD-10 - F31.62) 06/09/2024 Hypothyroid (ICD-10 - E03.9) 06/11/2024 Left knee pain (ICD-10 - M25.562) 08/13/2024 Hypothyroid (ICD-10 - E03.9) Plan Of Treatment Pending Test Test Name Order Date THYROID PANEL (T4/TSH/FREE T3) 5 THYROID PANEL (T4/TSH/FREE T3) 5 THYROID PANEL (T4/TSH/FREE T3) 5 THYROID PANEL (T4/TSH/FREE T3) 4 Insurance Providers Payer Name Payer Address Payer Phone Subscriber Number Group Number Insured Name Patient Relationship to Insured Coverage Start Date Coverage End Date [facility] [address] [place] [address] Vera Dias Self - patient is the insured 2 [employer] [place] [employer] [address] [place] [address] [id number] Vera Dias Self - patient is the insured 3 Medical (General) History Medical History History ICD Code Night sweats R61 Over weight E66.3 History of kidney stones Z87.442 History of substance abuse F19.11 Suicidal ideation R45.851 Prolonged QT interval R94.31 GERD (gastroesophageal reflux disease) K 21.9 Hypothyroid E03.9 Surgical History Surgery Date(Month/Year) appendectomy c section Hospitalization History Reason Date(Month/Year) physch at [facility] see above
--- OUTSIDE RECORDS SUMMARY | 2024-10-06 09:39 | XMS_ITS | Clinical Summary ---
Author Organization [employer] tem Address [facility] [place]-[id number] [address] [place] [address] Care Team Providers Care Deck Scaler Name Role Phone Neena Oh WEIGHT REDUCING TECHNICIAN-SPORTS COORDINATOR Primary Care Provider Allergies No known active allergies Medications levothyroxine (SYNTHROID, LEVOTHROID) 75 MCG tablet Take 50 mcg by mouth daily. Active PREPLUS 27 mg iron- 1 mg tablet 02/05/2018 Active HYDROXYprogester one caproate 250 mg/mL (1 mL) oil injection 04/03/2018 Active QUEtiapine (SEROquel) 25 mg tablet Take 1 tablet (25 mg total) by mouth nightly. 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 04/28/2018 History of loop electrosurgical excision procedu re (LEEP) 04/28/2018 Long QT interval 01/01/2008 Resolved Problems Problem Noted Date Diagnosed Date Resolved Date Substance abuse 04/28/2018 04/28/2018 Overview (04/28/2018): + THC Prolonged QT interval 04/28/20182017 Depression 04/28/2018 04/28/2018 Encounters Date Type Department Care Team Description 09/14/2024 Travel 08/30/2024 Travel from Last 3 Months Immunizations Immunization Administration Dates Next Due Tdap 09/30/2023 Family History Medical History Relation Name Comments Heart disease Father Hypertension Father Thyroid disease Father Hyperlipidemia Maternal Grandmother Hypertension Maternal Grandmother Thyroid disease Maternal Grandmother Bipolar disorder Mother Heart disease Mother Hyperlipidemia Mother Thyroid disease Mother Hypertension Paternal Grandmother Relation Name Status Comments Father Maternal Grandmother Mother Paternal Grandmother Social History Tobacco Use Types Packs/Day Years Used Date Smoking Tobacco: Every Day Cigarettes Smokeless Tobacco: Never Tobacco Cessation:Ready to Q uit: Yes; Counseling Given: Yes Alcohol Use Standard Drinks/Week Comments No 0 (1 standard drink = 0.6 oz pur e alcohol) AUDIT-C Answer Date Recorded Frequency of Alcohol Consumption Never 06/18/2018 Average Number of Drinks Not on file 019 Frequency of Binge Drinking Not on file 05/21 Childcare Answer Date Recorded Childcare Unknown 10/28/2018 Employment Answer Date Recorded Employment Unknown 10/28/2018 Hunger Screening Answer Date Recorded Within the past 12 months we worried whether our food would run out before we got money to buy more. Never True 09/30/2023 Within the past 12 months th e food we bought just didn't last and we didn't have money to get more. Never True 09/30/2023 Purpose - Life Answer Date Recorded Purpose and direction in life Unknown Comments No Sex and Gender Information Value Date Recorded Sex Assigned at Not on file Legal Sex Female 11:39 AM EDT Gender Identity Not on file Sexual Orientation Not on file Last Filed Vital Signs Vital Sign Reading Time Taken Comments Blood Pressure 115/77 09/30/2023 3:00 PM EDT Pulse 103 09/30/2023 1:37 PM EDT Temperature 36.3 C (97.4 F) 09/30/2023 1:43 PM EDT Respiratory Rate 18 09/30/2023 1:37 PM EDT Oxygen Saturation 97% 09/30/2023 3:00 PM EDT Inhaled Oxygen Concentration - - Weight 81.6 kg (180 lb) 09/30/2023 1:43 PM EDT Height 162.6 cm (5' 4 ) 09/30/2023 1:43 PM EDT Body Mass Index 30.9 09/30/2023 1:43 PM EDT Plan of Treatment Health Maintenance Due Date Last Done Comments Tobacco Counseling 1988 Depression Screening 2000 Adult BMI Follow Up Plan 2006 Pap Smear 2009 COVID-19 Vaccine (2023-2 5 season) 2024 07/17/2021, 06/23/2021 Adult BMI Screening 09/29/2024 09/30/2023 Tobacco Screening 09/29/2024 09/30/2023 Influenza Vaccine 01/17/2025 02/17/2006 DTaP,Tdap and Td Vaccines (7 - Td or Tdap) 09/29/2033 09/30/2023, 06/02/2014, 11/15/1999, Additional history exists [employer] Not on file Insurance [place] [employer] [place] [employer] Care Teams Deck Scaler Relationship Specialty Start Date End Date Neena Oh, WEIGHT REDUCING TECHNICIAN-SPORTS COORDINATOR [address] [place] [address] PCP - General Family Medicine 09/30/23
[2024-10-06 10:30] LABS: Free T3 3.47 pg/mL (2.18-3.98); Thyroid Stimulating Hormone 1.401 uIU/mL (0.358-3.740)
== END 2024-10-06 09:26 | disposition home or self-care (01) ==
LOC: LAB 09:27
PROVIDERS: PCP Nurse Practitioner Family; Visit Provider Nurse Practitioner Family
DX: E03.9 Hypothyroidism, unspecified (principal)
CPT/HCPCS: 36415; 84436; 84443; 84481